=== PATIENT | female | born 1930 | race Caucasian/White ===

== ENCOUNTER → 2017-04-19 | Outpatient (CLI) | payer OTHER, MEDICARE | LOC: HYPER 07:30 | DX: L03.115 Cellulitis of right lower limb (principal); E87.1 Hypo-osmolality and hyponatremia; I10 Essential (primary) hypertension; M19.90 Unspecified osteoarthritis, unspecified site; I89.0 Lymphedema, not elsewhere classified; Z85.3 Personal history of malignant neoplasm of breast; Z72.89 Other problems related to lifestyle ==

== ENCOUNTER 2017-05-16 08:09 | Inpatient (IN) | payer OTHER, MEDICARE ==
[~2017-05-16] VITALS: Ht 152.4 cm; Wt 47.6 kg
--- NOTE | ~2017-05-16 | H ---
[facility] [place] [address] HISTORY AND PHYSICAL Name: KOJO HILTON Room #: 422-P ADM IN M.R.#: [id number] Admission: 05/16/17 Attend Phys: Jair Hackett MD Discharge: Date of : 30 Report #: [id number] THIS REPORT FOR: //name// CC: Sunshine Hackett DATE OF SERVICE: 05/16/2017 CHIEF COMPLAINT: Bilateral lower extremity swelling and ulcers. HISTORY OF PRESENT ILLNESS: The patient is an 87-year-old female who has had bilateral lower extremity ulcers for last month or so. Prior to that, the patient reports mild lower extremity swelling, but denies significant infection. She is followed by wound clinic. The patient states that she has had on and off oral antibiotics, as well as she is on tapered dose steroids. Her wounds have not healed. She had a skin biopsy, result of which is pending. The patient was directly admitted from the wound clinic for further evaluation and treatment. The patient reports bilateral lower extremity pain. She has no other complaints. She denies chest pain, shortness of breath, blurry vision, dizziness, or other symptoms. PAST MEDICAL HISTORY: 1. Hypertension. 2. History of breast cancer, status post right lumpectomy. 3. Anxiety. CURRENT MEDICATIONS: Include amlodipine 2.5 mg a day, aspirin 81 mg a day, doxycycline 100 mg b.i.d., lisinopril 20 mg a day, and prednisone 5 mg a day. FAMILY HISTORY: Reviewed and not pertinent to the patient's current condition. SOCIAL HISTORY: The patient does not smoke cigarettes and does not drink alcohol. REVIEW OF SYSTEMS: As above in HPI section, all others negative. PHYSICAL EXAMINATION: GENERAL: The patient is an elderly female who is in no apparent distress. VITAL SIGNS: Blood pressure is 101/59, heart rate is 84, respiration is 16, and temperature is reported 97.5. HEENT: Pupils are equal. Eye movements are normal. The patient has anicteric sclerae. NECK: Supple. The patient has no thyromegaly. RESPIRATORY: Chest moves symmetrically with breathing. [facility] [address] [place] [address] HISTORY AND PHYSICAL Name: KOJO HILTON Room #: 422-P [facility] IN .R.#: [id number] Admission: 05/16/17 Attend Phys: Jair Hackett MD Discharge: Date of : 30 Report #: [id number] LUNGS: Clear to auscultation bilaterally. CARDIOVASCULAR: The patient has regular rhythm and rate. She has no murmurs, gallops or rubs. GASTROINTESTINAL: Abdomen is soft, nondistended and nontender. Bowel sounds are present. The patient has no hepatomegaly or splenomegaly. Abdominal examination is benign. MUSCULOSKELETAL: The patient has 3+ pitting edema on the right, and 2+ edema on the left. Legs are bandaged. NEUROLOGIC: The patient is alert and oriented x 3. Her examination is grossly nonfocal. LABORATORY DATA: On CBC, white count is 17,000. Differential is pending. Hemoglobin is 10.3, hematocrit is 30.9. Metabolic profile is pending. Per preliminary report, lipase level is greater than 30,000. ASSESSMENT AND PLAN: 1. Chronic nonhealing bilateral lower extremity wounds, etiology is not clear. White count is 17,000. The patient will be started on IV antibiotics. Infectious Disease doctor is consulted. Input is very much appreciated. insurance follow up specialist will continue to follow the patient during the hospitalization. We will obtain lower extremity arterial Dopplers. 2. Chronic lower extremity swelling. Discontinue amlodipine. Obtain cardiac echo. 3. Elevated lipase level, greater than 30,000 per preliminary report. No abdominal pain, no GI symptoms. CT of the abdomen is ordered. 4. Hypertension. Blood pressure is borderline low. Again, discontinue amlodipine, and reduce lisinopril dose from 20 mg a day, to 10 mg a day. 5. Deep venous thrombosis prophylaxis. SubQ Lovenox. <ELECTRONICALLY SIGNED> By: Natalie Malin MD 05/18/17 0746 1550 1602 Natalie Malin MD /nt
--- NOTE | ~2017-05-16 | HC ---
[facility] [place] [address] CONSULTATION Name: KOJO HILTON Room #: 422-P [facility] IN M.R.#: [id number] Admission: 05/16/17 Attend Phys: Jair Hackett MD Discharge: 05/21/17 Date of : 30 Report #: [id number] THIS REPORT FOR: //name// CC: Sunshine Hackett DATE OF SERVICE: 05/17/2017 PERSONAL PHYSICIAN: Sunshine Blanco MD. CHIEF COMPLAINT: Lower extremity ulcerations and swelling. HISTORY OF PRESENT ILLNESS: This is an 87-year-old white female who my partner has been following in the Wound Clinic for the past several weeks, initially was felt to be erythema nodosum; however, over the past week, the patient has not been responding to steroid therapy. I actually saw the patient last week and felt that the patient needed to get back and to see Dr. Roca. He requested the patient to go indomethacin, which the patient has started, but he was going to see the patient for further biopsy. 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 At that time, the patient came over and saw me in the clinic. The patient was very extremely debilitation and could hardly get out of her wheelchair. The patient appeared to be somewhat ill and it was felt that it would best be to admit the patient to the hospital and proceed with a further workup of the etiology of these lesions. Dr. Roca and I had spoken about possibly doing a CT scan of the abdomen and pelvis to evaluate the pancreas as a cause or etiology for these possible lesions. The patient adamantly denies any pain in her abdominal region. The patient states he has had a decreased appetite, but denies nausea, vomiting or diarrhea. The patient denies any other associated concerns except for weakness. PAST MEDICAL HISTORY: Significant for hypertension, previous breast cancer with a previous right lumpectomy, anxiety and the recent swelling of lower extremities with associated painful nodular lesions. CURRENT MEDICATIONS: Amlodipine, aspiration, doxycycline, lisinopril, prednisone 5 mg daily, which has come down from a prednisone taper. The patient is also on indomethacin. ALLERGIES: NONE EXCEPT FOR POSSIBLE LATEX. FAMILY HISTORY: Not pertinent to current medical condition. SOCIAL HISTORY: The patient does not smoke or drink alcohol. She has a son, who is an ears, nose and throat specialist. [address] [address] CONSULTATION Name: KOJO HILTON Room #: 422-P [facility] IN [facility].#: [id number] Admission: 05/16/17 Attend Phys: Jair Hackett MD Discharge: 05/21/17 Date of : 30 Report #: [id number] REVIEW OF SYSTEMS: CONSTITUTIONAL: The patient denies fevers or chills. NEUROLOGIC: The patient has overall generalized weakness, which has been progressive over the past week, but no isolated weakness in arms or legs. EYES: No complaints. ENT: No complaints. CARDIAC: The patient denies chest pain, palpitations, but has chronic and progressive lower extremity edema. RESPIRATORY: The patient denies shortness breath, cough or wheezes. GASTROINTESTINAL: The patient denies nausea, vomiting, or abdominal pain. GENITOURINARY: The patient denies urgency or frequency. MUSCULOSKELETAL: No complaints. SKIN: There are multiple nodular exquisitely painful lesions on both lower extremities, which has also been previous biopsies performed. PHYSICAL EXAMINATION: VITAL SIGNS: Temperature 36.9, pulse 80, respirations 16, BP 121/61. GENERAL: This is an alert and oriented x 3, pleasant thin white female, who is in qrli-jr-ywhvqcme distress secondary to pain. HEENT: Normocephalic, atraumatic. Mucous membranes are dry. Pupils are round. Sclerae white. NECK: Supple, nontender. LUNGS: Clear. HEART: Regular without murmur. ABDOMEN: Soft. There is no tenderness, rebound or guarding. There is no organomegaly. EXTREMITIES: The patient moves all extremities. Spontaneous evaluation of lower extremity reveals 2-3+ edema with multiple nodular lesions, which are fluctuant and exquisitely tender. There are 3-4 lesions, which have been biopsied and have sutures in them. There is one lesion, which has been biopsied and sutured of the right medial knee as well as 2 areas on the right lower extremity around the area of the right lateral ankle and Achilles region of which had been opened and drained and have wicking iodoform packing within them. The rest of the areas are erythematous and tender, somewhat warm to touch. However, there is no purulence coming out of any of the open ulcerations. The initial biopsy site on the right pretibial region has totally healed. NEUROLOGIC: Cranial nerves 2-12 are grossly intact. Motor and sensory grossly intact. LABORATORY DATA: White count 15.8, hemoglobin 8.3. Calcium 8.2. Lipase is greater than 30,000. Albumin is 2.4. CT scan of the abdomen and pelvis shows multiple, what appear to be metastatic lesions in the liver as well as an atrophy of the tail of the pancreatitis. IMPRESSION: [facility] [address] [place] [address] CONSULTATION Name: KOJO HILTON Room #: 422-P [facility] IN .R.#: [id number] Admission: 05/16/17 Attend Phys: Jair Hackett MD Discharge: 05/21/17 Date of : 30 Report #: [id number] 1. 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 2. 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 3. Chronic lower extremity edema. 4. Generalized debility. 5. Severe protein-calorie malnutrition with an albumin of 2.4. PLAN: At this time, we will use morphine, Silvadene cream to the entirety of the lower extremities; wrap this with Xeroform, ABD, Kerlix and Sivakumar wrap from toes to the knee. This will be changed once daily. I will contact the son and let him know about the findings on the CAT scan as well as the elevated lipase. We will continue to follow from a wound care point of view. We will make sure we maximize patient's oral supplementation of her protein for healing. I will also encourage her to participate with physical and occupational therapy for strengthening. We will continue to follow the patient. Dr. Shin Roca has been notified of these findings. <ELECTRONICALLY SIGNED> By: Jair Hackett MD 05/26/17 1132 [id number] [id number] Jair Hackett MD /nt
--- NOTE | ~2017-05-16 | HC ---
[facility] [place] [address] CONSULTATION Name: KOJO HILTON Room #: 422-P ADM IN M.R.#: [id number] Admission: 05/16/17 Attend Phys: Jair Hackett MD Discharge: Date of : 30 Report #: [id number] THIS REPORT FOR: //name// CC: Natalie aHckett DATE OF SERVICE: 05/17/2017 INFECTIOUS DISEASE CONSULTATION CONSULTATION REQUESTED BY: Jair Hackett MD HISTORY OF PRESENT ILLNESS: The patient is an 87-year-old white woman who had developed leg lesions sometime in March. She visited with her primary physician, Dr. Sunshine Blanco who referred to Dr. Jair Hackett. She received treatment with doxycycline. 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 The patient is mainly complaining of leg swelling and pain in legs, but other than that denies any gastrointestinal issues. The patient denies fevers. She has lived in many states in the [place] throughout her life. She resided in [place], [place] for years with her in the . She has a son, Ear, Nose and Throat specialist, living in [place] I believe and another son, CPA, living here in town. All in all, if it was not for the leg lesions, the patient has no major complaints. PAST MEDICAL HISTORY: The patient relates she has some arthritis of hands, which are typical for osteoarthritis. Hypertension. Right breast lumpectomy for carcinoma sometimes in the 90s. She appears to be cured from that. DRUG ALLERGIES: None listed. MEDICATIONS: She is currently on treatment with lisinopril, aspirin, prednisone 5 mg daily, hydrocodone p.r.n., vancomycin 500 mg b.i.d., Benadryl p.r.n., melatonin p.r.n., ceftazidime 1 g IV every 8 hours, enoxaparin and eye drops that she uses at home. REVIEW OF SYSTEMS: The patient has shown significant decline of physical abilities of lately. She initially walked in to Dr. Jair Hackett on her own. Subsequently, she was mobilizing on a wheelchair. Specifically, no GI symptoms. The patient's huusulme-al-tqg visited with us today, and she did not have much to add to this, what we have discussed with the patient. I shared the CT scan findings with the patient's xlrtuipl-ti-dst who will share with the children. I discussed [place] [address] CONSULTATION Name: KOJO HILTON Room #: 422-P [facility] IN M.R.#: [id number] Admission: 05/16/17 Attend Phys: Jair Hackett MD Discharge: Date of : 30 Report #: [id number] PHYSICAL EXAMINATION: GENERAL: A well-developed woman, not toxic looking, afebrile. VITAL SIGNS: Temperature 98.5, pulse 80, respirations 16 and BP 121/61. HEENMT: Eyes, pupils reactive. No arcus cornealis. Conjunctivae pale. Mouth, no thrush currently, she did have this last week I believe. NECK: Supple. No thyromegaly. LUNGS: Clear to auscultation. BREASTS: Deferred. HEART: S1 and S2. No gallop or murmur. ABDOMEN: Soft. No masses or megaly. PELVIC: Deferred. RECTAL: Deferred. EXTREMITIES: The patient has nodular lesions over the right Achilles tendon and several other subcutaneous nodules particularly on the left calf. Some of these lesions were biopsied. NEUROLOGIC: Grossly within normal limits. LABORATORY DATA: Sodium 130 and potassium 4.2. BUN 16 and creatinine 0.6. Glucose 110. Lipase greater than 30,000. Alkaline phosphatase 121. Albumin 2.4 g/dL. White blood cell count 17,400; hemoglobin 10.3 g/dL and platelets 397,000. The white blood cell count on differential revealed 95% segmented neutrophils. After some hydration, the hemoglobin dropped to 8.3 g/dL today. Urinalysis revealed trace blood, trace leukocyte esterase, 1-9 bacteria per HPF. MICROBIOLOGY DATA: Urine culture pending. RADIOLOGY EVALUATION: A CT scan of abdomen and pelvis revealed extensive metastatic lesions to the liver and a nodular lesion on the pancreatic tail with some atrophy that may indicate pancreatic origin of the tumor. Chest x-ray revealed no acute process. 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 ASSESSMENT: 1. Nodular skin lesions of the legs, possibly related to metastatic liver lesions. 2. 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 3. Elevation of lipase secondary to metastatic liver lesions. 4. History of right breast cancer. 5. Anemia. 6. Malnutrition. SUGGESTIONS: Discussed with the patient and family as well as Dr. Jair Hackett and Dr. Malin proceeding with liver biopsy. We will discontinue vancomycin, [facility] [address] [place] [address] CONSULTATION Name: KOJO HILTON Room #: 422-P ADM IN M.R.#: [id number] Admission: 05/16/17 Attend Phys: Jair Hackett MD Discharge: Date of : 30 Report #: [id number] continue Fortaz. Further recommendations per Oncology Service once biopsy results available. Dr. Jair Hackett, thank you for requesting my suggestions in the care of your patient. <ELECTRONICALLY SIGNED> By: Ezio Moncada MD 05/18/17 0958 1030 1158 Ezio Moncada MD /nt
--- NOTE | ~2017-05-16 | HC ---
[facility] [place] [address] CONSULTATION Name: KOJO HILTON Room #: 422-P [facility] IN M.R.#: [id number] Admission: 05/16/17 Attend Phys: Jair Hackett MD Discharge: 05/21/17 Date of : 30 Report #: [id number] THIS REPORT FOR: //name// CC: Sunshine Hackett DATE OF SERVICE: 05/20/2017 HISTORY OF PRESENT ILLNESS: An 87-year-old white female who is admitted with multiple nodular lesions over her lower extremities with bilateral lower extremity ulcers. She underwent further evaluation, which also included a workup regarding hepatic masses. She underwent a liver biopsy, which showed a poorly differentiated adenocarcinoma. Oncology is involved. Wound care is assisting regarding her multiple nodular lesions as well as Infectious disease. 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 She also has a markedly elevated lipase. She has significant pain with limited attempts of mobility. We are seeing her in rehabilitation medicine consultation. PAST MEDICAL HISTORY: Includes a prior history of breast cancer, hypertension, anemia of chronic disease, severe protein-calorie malnutrition. There is a history of anxiety. MEDICATIONS: Please see the full medication listing. FAMILY HISTORY: Noncontributory. SOCIAL HISTORY: Lives in an apartment alone, used a cane. She noted that prior to all that she was independent, ambulatory without gait aids. She has an involved son. HABITS: No history of tobacco or alcohol abuse. REVIEW OF SYSTEMS: Did not offer any current complaints of chest pain, shortness of breath or abdominal discomfort. Main complaint is bilateral lower extremity discomfort with attempted mobility. PHYSICAL EXAMINATION: GENERAL: Pleasant small statured, thin 87-year-old white female in no obvious distress. VITAL SIGNS: Last recorded temperature is 98.5, pulse 87, respirations 20, blood pressure 105/54. NEUROLOGIC: She is alert, pleasant, oriented, little hard of hearing. Facies are symmetric. [facility] [address] [place] [address] CONSULTATION Name: KOJO HILTON Room #: 422-P [facility] IN M.R.#: [id number] Admission: 05/16/17 Attend Phys: Jair Hackett MD Discharge: 05/21/17 Date of : 30 Report #: [id number] EXTREMITIES: She has functional range of motion of both upper extremities with strength grade 4-/5. DTRs are trace to 1. Lower extremities, her legs are wrapped from below the knees distal. She has a lot of pain with attempted movement or attempted volitional manual muscle testing. I would grade her strength probably a 4- proximally and 3+ distally. She is max assist with sit to stand. She did take a few steps front-wheeled walker 15 feet. She has a lot of pain and needs a lot of encouragement. IMPRESSION: An 87-year-old white female with the following problem list: 1. Medical complex with generalized debilitation. 2. Multiple hepatic lesions consistent with metastatic disease noted to be a poorly differentiated adenocarcinoma per biopsy. 3. Multiple tender, erythematous nodular lesions, bilateral lower extremities. 4. Chronic lower extremity edema. 5. Severe protein calorie malnutrition. 6. Anemia of chronic disease. PLAN: The patient has not tolerated therapies very well because she has a lot of pain with attempted mobility on those lower extremities. I have concerns regarding her ability to tolerate an acute in-hospital inpatient rehabilitation program and feel that a half-way facility level would be more appropriate. She needs a lot of encouragement to even try to get up with therapies and has a lot of pain with attempted movement. Note that case management is already looking at half-way facility options back at [facility] where she is from. Thank you for asking us to assist in this patient's care. <ELECTRONICALLY SIGNED> By: Roshan Valderrama MD 05/26/17 1643 1205 1725 Roshan Valderrama MD /[facility]
--- NOTE | ~2017-05-16 | S ---
[facility] [place] [address] SURGICAL PATH RPT PROCEDURE Name: KOJO SPENCER Room #: 422-P [facility] IN M.R.#: [id number] Admission: 05/16/17 Date of : 30 Discharge: 05/21/17 Report #: [id number] Path Case #: [id number] PATHOLOGY REPORT COLLECTION DATE: 05/17/2017 RECEIVED DATE: 05/17/2017 SUBMITTING PHYS: Dr. Hunter Stallworth OTHER PHYS: Dr. Jair Blanco SPECIMEN(S) RECEIVED: A.Liver mass * * * * * * * * * * * * FINAL DIAGNOSIS: Liver, "needle core biopsy": - Moderate to poorly-differentiated adenocarcinoma. - See comment. COMMENT: Immunoperoxidase stains reveal block A1 Synaptophysin negative. Hepatocyte specific antigen negative. CDX2 negative. CD10 negative. P63 negative. TTF-1 negative. Chromogranin negative. CD56 negative. AE1/AE3 positive. CK7 positive. CK19 negative. CK20 negative. Based on these immunoperoxidase stains this is a moderate to poorly-differentiated adenocarcinoma. Negative TTF1 makes lung unlikely Positive CK7, can be seen with breast. Negative CK20 and CDX2 makes gastrointestinal tract not likely. Negative CK19 is not consistent with biliary tract. All neuroendocrine markers are negative. Negative Hepatocyte antigen makes liver unlikely. Previous history of breast carcinoma noted and a panel for ER, MI and HER2 is sent as requested by Dr. Kylah Tobias. This case was discussed with Dr. Kylah Tobias on 05/19/2017 at 3pm. This case was also reviewed by Dr. Shanice Johnson. (SHA:mml; 05/19/2017) [facility] [place] [address] SURGICAL PATH RPT PROCEDURE Name: KOJO SPENCER Room #: 422-P [facility] IN M.R.#: [id number] Admission: 05/16/17 Date of : 30 Discharge: 05/21/17 Report #: [id number] Path Case #: [id number] PATHOLOGIST: Joey Cassidy M.D. REPORT ELECTRONICALLY SIGNED BY: Joey Cassidy M.D. DATE/TIME: 05/19/2017 15:17 * * * * * * * * * * * * GROSS PATHOLOGY: The specimen is received in formalin, labeled "Kojo Spencer and liver biopsy", are multiple ramsey needle cores the aggregate measuring 1.0 x 0.2 x 0.1 cm, entirely submitted in A1. (SWS; 05/17/2017) CLINICAL HISTORY: Liver mass INITIAL CPT CODE(S): A; 37686, 07283, 33412, 62170, 72363, 19916, 18960, 61380, 79447, 25100, 06920, 90536, 22619, 84903(2), 85050 Professional services performed by [facility] at [facility] [place] [address] Technical services performed by [facility] at [address] [place] [address], [facility] [address] [place] [address]. PROCEDURE REPORT (Order Date: 05/19/2017 00:00) COMMENT: Quantitative image analysis was performed on block A1. Please see next page for scanned image of results. (AMJ 05/24/2017) PATHOLOGIST: Joey Cassidy M.D. REPORT ELECTRONICALLY SIGNED BY: Joey Cassidy M.D. DATE/TIME: 05/24/2017 11:[address] [facility] [address] [place] [address] PHONE: [phone] DIRECTOR: Luis Houston M.D. * * * END OF REPORT * * *
--- NOTE | ~2017-05-16 | 2DMMODE ---
[facility] [address] [place] [address] 2 D/M-MODE ECHOCARDIOGRAM Name: SHUN HILTONJORIE Room #: 422-P ADM IN M.R.#: [id number] Admission: 05/16/17 Attend Phys: Jair Hackett, Discharge: Date of : 30 Date of Service: 05/17/17 0955 Report #: [id number] THIS REPORT FOR: //name// APPROVED REPORT Study performed: 05/17/2017 08:29:47 EXAM: Comprehensive 2D, Doppler, and color-flow Echocardiogram Patient Location: Echo lab Room #: [facility] Status: routine BSA: 1.42 HR: 75 bpm BP: 122/57 mmHg Rhythm: NSR/Irregular Other Information Study Quality: Adequate Indications Leg swelling. Evaluate for CHF. HTN 2D Dimensions RVDd: 37.97 mm LVEF(%): 58.24 (>50%) IVSd: 8.61 (7-11mm) LVOT Diam: 18.88 (18-24mm) LVDd: 40.81 mm PWd: 9.13 (7-11mm) Ascending Ao: 28.24 (22-36mm) LVDs: 28.42 (25-40mm) Aortic Root: 29.29 mm Byrd's LVEF: 58.24 % Volumes Left Atrial Volume (Systole) Single Plane 4CH: 53.37 mL Single Plane 2CH: 42.51 mL LA ESV Index: 38.00 mL/m2 Aortic Valve AoV Peak Craig.: 2.06 m/s AO Peak Gr.: 17.06 mmHg LVOT Max P.95 mmHg AO Mean Gr.: 9.03 mmHg AO V2 Mean: 1.44 m/s LVOT Max V: 1.30 m/s AO V2 VTI: 41.28 cm FARTUN Vmax: 1.76 cm2 Mitral Valve [facility] [place] [address] 2 D/M-MODE ECHOCARDIOGRAM Name: KOJO HILTON Room #: 422-P [facility] IN ..#: [id number] Admission: 05/16/17 Attend Phys: Jair Hackett, Discharge: Date of : 30 Date of Service: 05/17/17 0955 Report #: [id number] E/A Ratio: 1.3 MV Decel. Time: 271.03 ms MV E Max Craig.: 0.94 m/s MV A Craig.: 0.73 m/s MV PHT: 78.60 ms IVRT: 55.36 ms Pulmonary Valve PV Peak Craig.: 0.97 m/s PV Peak Gr.: 3.78 mmHg Pulmonary Vein P Vein S: 0.80 m/s P Vein A: 0.33 m/s P Vein D: 0.51 m/s P Vein A Dur.: 93.4 msec P Vein S/D Ratio: 1.57 Tricuspid Valve TR Peak Craig.: 2.76 m/s RAP Estimate: 5.00 mmHg TR Peak Gr.: 30.43 mmHg PA Pressure: 35.00 mmHg Left Ventricle The left ventricle is normal size. There is normal LV segmental wall motion. There is normal left ventricular wall thickness. Left ventricular systolic function is normal. LVEF is 55-60%. Right Ventricle The right ventricle is normal size. The right ventricular systolic function is normal. Atria Left atrium is mildly dilated. The right atrium size is normal. Aortic Valve Aortic valve is calcified. Mild aortic regurgitation. There is no aortic valvular stenosis. Mitral Valve Mitral valve leaflets are mildly thickened. Mild mitral regurgitation. Tricuspid Valve The tricuspid valve is normal in structure. Mild to moderate tricuspid regurgitation. Estimated PAP is 35mmHg. [place] [address] 2 D/M-MODE ECHOCARDIOGRAM Name: KOJO HILTON Room #: 422-P ADM IN [facility]#: [id number] Admission: 05/16/17 Attend Phys: Jair Hackett, Discharge: Date of : 30 Date of Service: 05/17/17 0955 Report #: [id number] The pulmonary valve is normal in structure. Trace pulmonic regurgitation. Great Vessels The aortic root is normal in size. The ascending aorta is normal in size. IVC is normal in size and collapses >50% with inspiration. Pericardium Trivial fluid noted posteriorly. <Conclusion> The left ventricle is normal size. LVEF is 55-60%. Left atrium is mildly dilated. Aortic valve is calcified. Mild aortic regurgitation. There is no aortic valvular stenosis. Mitral valve leaflets are mildly thickened. Mild mitral regurgitation. The tricuspid valve is normal in structure. Mild to moderate tricuspid regurgitation. Estimated PAP is 35mmHg. The pulmonary valve is normal in structure. Trace pulmonic regurgitation. Trivial fluid noted posteriorly. <ELECTRONICALLY SIGNED> By: Fredy Agudelo MD 05/17/17 0955 4 Fredy Agudelo MD /INF
--- NOTE | ~2017-05-16 | HC ---
[facility] [place] [address] CONSULTATION Name: KOJO HILTON Room #: 422-P ADM IN M.R.#: [id number] Admission: 05/16/17 Attend Phys: Jair Hackett MD Discharge: Date of : 30 Report #: [id number] THIS REPORT FOR: //name// CC: Natalie Berrios MD REASON FOR CONSULTATION: This patient is seen in consultation regarding findings of abnormal CT scan/suspected liver metastasis. HISTORY OF PRESENT ILLNESS: This 87-year-old white female was admitted with findings of painful/pruritic eruptive leg lesions that had been present for the last 6 weeks. She did not improve with trial of corticosteroids and ultimately had a skin biopsy, which showed a reactive/panniculitis type pattern with no evidence of malignancy. She has had subsequent development also of edema. She denies any sweats, chills, fevers or weight loss. PAST MEDICAL HISTORY: Significant for medically managed hypertension. She underwent treatment for right breast cancer with conservation surgery at the age of 62. This was discovered on a screening mammogram in December 1992 and underwent wide excisional lumpectomy with axillary lymph node dissection on 01/14/1993. She had a radium implant radiation therapy for this tumor that measured 2.3 cm, but was node negative. 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 She received 6 cycles of adjuvant CF chemotherapy followed subsequently by further radiation therapy, which was completed in 1993. She was followed by Dr. Lin her surgeon until his detention and then transferred to the survivorship clinic for ongoing surveillance. She was just seen by them at on 04/05/2017. Her recent mammograms are negative. She did not have liver function studies performed. She has also undergone previous Mohs surgery on her face in June 2012 x 2. She had carpal tunnel surgery in November 2013. She had liver cyst removed in April [address] Serrano. MEDICATIONS: As listed on the MFR. FAMILY HISTORY: Noncontributory. SOCIAL HISTORY: She is a nondrinker, nonsmoker. REVIEW OF SYSTEMS: Are as in the history of present illness. PHYSICAL EXAMINATION: [facility] [address] [place] [address] CONSULTATION Name: KOJO HILTON Room #: 422-P [facility] IN M.R.#: [id number] Admission: 05/16/17 Attend Phys: Jair Hackett MD Discharge: Date of : 30 Report #: [id number] GENERAL: Shows an elderly white female, who is alert and is somewhat hard of hearing. VITAL SIGNS: Normal. HEENT: Normocephalic. NECK: Supple. CHEST: Clear. BREASTS: Show no suspicious masses. LYMPHATICS: No palpable supraclavicular or axillary adenopathy. CARDIOVASCULAR: Normal S1, S2. ABDOMEN: Shows no organomegaly or mass. NEUROLOGIC: Shows no focal localizing signs. EXTREMITIES: Show 3+ pitting edema on the right. Her legs are bandaged. She does have 1 cm erythematous nodules that are apparent. HOSPITAL COURSE: Her laboratory studies are reviewed as well as the CT scan showing hepatic cysts as well as numerous hepatic masses. She has wedging of the L2 vertebral body, which appears chronic and benign. She has a cyst in the left kidney and atrophy of the pancreatic tail. ASSESSMENT: Probable liver metastasis. PLAN: The patient is to undergo an IR directed needle biopsy of the liver, which should obtain a tissue diagnosis. She has serologic studies pending including CEA, CA 19-9 and CA 27. She has not had a recent colonoscopy for the last 10+ years, but denies any recent change in bowel or bladder habits. We will await results of pathological diagnosis for further recommendations for treatment, we will follow. Thanks for allowing me to see her with you in consultation and asking me to participate in her care. <ELECTRONICALLY SIGNED> By: Kylah Tobias MD 05/19/17 1537 [id number] Kylah Tobias MD /nt
[~2017-05-16 08:09] MED LIST: DOXYCYCLINE 10100 MG PO
[2017-05-16 15:21] LABS: HEMATOCRIT 30.9 % (37.0-47.0); HEMOGLOBIN 10.3 gm/dL (12.0-15.0); MCHC 33.3 g/dL (28.0-37.0); MCV 87.1 fL (80.0-100.0); PLATELET COUNT 397 thou/uL (150-400); RBC 3.54 mil/uL (4.20-5.00); RDW 14.3 % (10.5-14.5); WBC 17.4 thou/uL (4.0-11.0)
[2017-05-16] MEDS ORDERED: PREDNISONE 5 MG5 M1 PO (15:21)
[2017-05-16] MEDS ORDERED: LISINOPRIL20 MG PO (15:22)
[2017-05-16] MEDS ORDERED: NORVASC2.5 MG PO (15:23)
[2017-05-16 15:25] LABS: MANUAL DIFF YES
[2017-05-16] MEDS ORDERED: ASPIR 8181 MG PO (15:25)
[2017-05-16 15:35] LABS: ALBUMIN 2.4 g/dL (3.4-5.0); CALCIUM 8.9 mg/dL (8.5-10.1); CREATININE 0.8 mg/dL (0.6-1.0); POTASSIUM 4.6 mmol/L (3.5-5.1); TOTAL BILIRUBIN 0.4 mg/dL (<0.1-1.0); TOTAL PROTEIN 6.7 g/dL (6.4-8.2)
[2017-05-16 15:45] LABS: ABSOLUTE NEUTROPHILS 16.5 thou/uL (1.4-8.2); TOTAL CELL COUNT 100
[2017-05-16 15:46] LABS: ANISOCYTOSIS 1+; POLYCHROMASIA OCCASIONAL
[2017-05-16 16:00] VITALS: BP 124/52
[2017-05-16 20:26] VITALS: BP 113/57
[2017-05-17] VITALS (15 sets, daily range): BP systolic 105–139; BP diastolic 54–69
[2017-05-17 03:44] LABS: URINE BILIRUBIN NEGATIVE (Negative); URINE BLOOD TRACE (Negative); URINE COLOR YELLOW; URINE GLUCOSE-RANDOM* NEGATIVE (Negative); URINE KETONES NEGATIVE (Negative); URINE PROTEIN (DIPSTICK) 1+ (Negative); URINE SPECIFIC GRAVITY <= 1.005 (1.005-1.035)
[2017-05-17 04:02] LABS: URINE LEUKOCYTES-REFLEX TRACE (Negative)
[2017-05-17 04:04] LABS: CASTS None Seen /LPF (None Seen); CRYSTALS None Seen /LPF (None Seen); SQUAMOUS 0-3 Few /LPF (0-3); URINE RBC 0-2 Rare /HPF (0-2); URINE WBC-REFLEX 0-5 Rare /HPF (0-5)
[2017-05-17 06:42] LABS: HEMATOCRIT 24.3 % (37.0-47.0); MCH 29.5 pg (26.0-34.0); MCHC 34.3 g/dL (28.0-37.0); MCV 86.1 fL (80.0-100.0); RBC 2.82 mil/uL (4.20-5.00); RDW 14.2 % (10.5-14.5); WBC 15.8 thou/uL (4.0-11.0)
[2017-05-17 06:55] LABS: MANUAL DIFF YES
[2017-05-17 06:56] LABS: CALCIUM 8.2 mg/dL (8.5-10.1); CREATININE 0.6 mg/dL (0.6-1.0); HEMOGLOBIN 8.3 gm/dL (12.0-15.0); PLATELET COUNT 297 thou/uL (150-400); POTASSIUM 4.2 mmol/L (3.5-5.1)
[2017-05-17 08:13] LABS: ABSOLUTE NEUTROPHILS 14.5 thou/uL (1.4-8.2); TOTAL CELL COUNT 100
[2017-05-17 08:15] LABS: ANISOCYTOSIS 1+
[2017-05-17 08:16] LABS: POLYCHROMASIA OCCASIONAL
[2017-05-17 11:38] LABS: PROTIME 10.4 Seconds (9.3-11.4)
[2017-05-17 12:33] LABS: ABSOLUTE RETIC COUNT 0.0516 10^6/uL; OBSERVED RETIC COUNT 1.79 % (0.6-2.6)
[2017-05-18 04:01] VITALS: BP 104/53
[2017-05-18 04:03] VITALS: BP 169/102
[2017-05-18 06:37] LABS: HEMATOCRIT 23.4 % (37.0-47.0); HEMOGLOBIN 8.2 gm/dL (12.0-15.0); MCH 30.2 pg (26.0-34.0); MCHC 35.1 g/dL (28.0-37.0); MCV 85.9 fL (80.0-100.0); PLATELET COUNT 260 thou/uL (150-400); RBC 2.72 mil/uL (4.20-5.00); RDW 14.4 % (10.5-14.5); WBC 17.7 thou/uL (4.0-11.0)
[2017-05-18 06:41] LABS: MANUAL DIFF YES
[2017-05-18 07:02] LABS: CALCIUM 8.1 mg/dL (8.5-10.1); CREATININE 0.6 mg/dL (0.6-1.0); POTASSIUM 4.4 mmol/L (3.5-5.1)
[2017-05-18 07:45] LABS: ABSOLUTE NEUTROPHILS 15.4 thou/uL (1.4-8.2); TOTAL CELL COUNT 100
[2017-05-18 07:46] LABS: ANISOCYTOSIS 1+; POLYCHROMASIA OCCASIONAL
[2017-05-18 08:00] VITALS: BP 121/56
[2017-05-18 15:25] VITALS: BP 111/55
[2017-05-18 18:10] LABS: CA 27.29 < 3.5 U/mL (0.0-38.6)
[2017-05-18 20:01] VITALS: BP 143/67
[2017-05-19 03:44] VITALS: BP 113/62
[2017-05-19 08:45] VITALS: BP 103/64
[2017-05-19 17:05] VITALS: BP 100/49
[2017-05-19 19:39] VITALS: BP 90/39
[2017-05-20 03:35] VITALS: BP 117/57
[2017-05-20 06:47] LABS: HEMATOCRIT 21.8 % (37.0-47.0); HEMOGLOBIN 7.5 gm/dL (12.0-15.0); MCH 29.7 pg (26.0-34.0); MCHC 34.4 g/dL (28.0-37.0); MCV 86.2 fL (80.0-100.0); RBC 2.53 mil/uL (4.20-5.00); RDW 14.3 % (10.5-14.5); WBC 16.1 thou/uL (4.0-11.0)
[2017-05-20 06:48] LABS: MANUAL DIFF YES; PLATELET COUNT 347 thou/uL (150-400)
[2017-05-20 07:02] LABS: CALCIUM 8.3 mg/dL (8.5-10.1); CREATININE 0.7 mg/dL (0.6-1.0); POTASSIUM 4.7 mmol/L (3.5-5.1)
[2017-05-20 07:30] VITALS: BP 105/54
[2017-05-20 08:37] LABS: TOTAL CELL COUNT 100
[2017-05-20 08:38] LABS: ANISOCYTOSIS SLIGHT; HYPOCHROMASIA 1+
[2017-05-20 09:40] LABS: ABSOLUTE RETIC COUNT 0.0427 10^6/uL; OBSERVED RETIC COUNT 1.67 % (0.6-2.6)
[2017-05-20 09:44] LABS: % SATURATION 13 % (20-39); IRON 13 ug/dL (50-170); TIBC 97 ug/dL (250-450); UIBC 84 ug/dL
[2017-05-20 10:08] LABS: TSH 2.877 uIU/mL (0.358-3.740)
[2017-05-20] MEDS ORDERED: ENOXAPARIN40 MG/0.1 SUBQ (13:21)
[2017-05-20] MEDS ORDERED: MELATONIN5 M1 PO (13:21)
[2017-05-20 15:30] VITALS: BP 100/45
[2017-05-20 20:56] VITALS: BP 107/49
[2017-05-21 04:23] VITALS: BP 121/65
[2017-05-21 05:49] LABS: HEMATOCRIT 23.6 % (37.0-47.0); HEMOGLOBIN 7.9 gm/dL (12.0-15.0); MCHC 33.6 g/dL (28.0-37.0); MCV 86.4 fL (80.0-100.0); RBC 2.73 mil/uL (4.20-5.00); RDW 14.2 % (10.5-14.5); WBC 16.5 thou/uL (4.0-11.0)
[2017-05-21 07:48] VITALS: BP 99/54
== END 2017-05-21 15:59 | DRG 871 ==
LOC: HYPER 08:09 → 4E 12:18 → HYPER 13:16 → 4E 05-21 15:59
PROVIDERS: Emergency Medicine; Hospitalist; Internal Medicine Endocrinology, Diabetes & Metabolism; Internal Medicine Hematology & Oncology
PROC: 0FB23ZX Excision of Left Lobe Liver, Percutaneous Approach, Diagnostic (ICD-10-PCS; principal; 2017-05-17)
DX: A41.9 Sepsis, unspecified organism (principal); E43 Unspecified severe protein-calorie malnutrition; L97.829 Non-pressure chronic ulcer of other part of left lower leg with unspecified severity; C78.7 Secondary malignant neoplasm of liver and intrahepatic bile duct; L97.819 Non-pressure chronic ulcer of other part of right lower leg with unspecified severity; M79.3 Panniculitis, unspecified; D63.8 Anemia in other chronic diseases classified elsewhere; I10 Essential (primary) hypertension; R53.81 Other malaise; F41.9 Anxiety disorder, unspecified; Z85.3 Personal history of malignant neoplasm of breast; Z68.20 Body mass index [BMI] 20.0-20.9, adult; Z79.2 Long term (current) use of antibiotics; Z79.899 Other long term (current) drug therapy; Z91.02 Food additives allergy status; Z91.040 Latex allergy status; Z91.013 Allergy to seafood
CPT/HCPCS: 10783